=== PATIENT | female | born 1955 | race Caucasian/White ===

== ENCOUNTER → 2018-08-29 | Outpatient (CLI) | payer BC ==
[~2018-08-29] MED LIST: IOHEXOL 350 MG/ML 100 ML (OMNIPAQUE 350) VIAL IV ONE; NS 100 ML (IVPB) BAG IV ONE; RECEIVED CONTRAST (Hold Metformin) IV SCH
[2018-08-29 09:07] LABS: BUN/CREATININE RATIO 24; CALCIUM 10.3 MG/DL (8.5-10.1); CARBON DIOXIDE 26 MMOL/L (21-32); CHLORIDE 102 MMOL/L (98-107); CREATININE SERUM 0.84 MG/DL (0.60-1.30); GFR ESTIMATED > 60; GLUCOSE 139 MG/DL (70-105); POTASSIUM 4.6 MMOL/L (3.6-5.0); SODIUM 138 MMOL/L (135-145)
--- NOTE | 2018-08-29 11:10 | Diagnostic Imaging Report ---
EXAMINATION: CTA of the renals. INDICATION: Syncope. TECHNIQUE: Contiguous axial sections were taken through the abdomen to include the aorta and renal arteries in the axial plane. Sagittal and coronal reconstructed images were also performed. MIP images were obtained as well. COMPARISON: There are no previous studies available for comparison. FINDINGS: The aorta is not aneurysmally dilated and there is no atherosclerotic plaque involving the aorta. There are two renal arteries to the left kidney and a single renal artery to the right kidney. There is no hemodynamically significant stenosis of the renal arteries. There is no evidence for hemodynamically significant stenosis of the celiac axis or the superior mesenteric artery or the inferior mesenteric artery. There is no evidence for hemodynamically significant stenosis of the common iliacs either. The abdomen where visualized is unremarkable. The liver does not appear to be enlarged and there is no focal mass involving the liver. The spleen, pancreas, adrenals, gallbladder, kidneys, inferior vena cava, and stomach are unremarkable for an acute abnormality. There may be a small hiatal hernia. The lung bases are clear. The bone windows are unremarkable for fracture or for destructive lesion. The breasts were not visualized in their entirety. There is no obvious breast mass evident. According to our records, the patient has not had a mammogram. If the patient has had a recent (one year) mammogram elsewhere, then no further imaging would be necessary. However if the patient has not had a recent mammogram, then mammography should be obtained. IMPRESSION: 1. The aorta is not aneurysmally dilated and there is no atherosclerotic disease of the aorta. 2. There is no hemodynamically significant stenosis of the origins of the vessels arising from the aorta. In particular, there is no sign of renal artery stenosis. 3. There is no acute abnormality of the abdomen or pelvis. 4. There is no obvious breast mass. Recommendations, as above. Dictated by: Dictated on workstation # [id number]
== END ==
LOC: RAD 08:32
PROVIDERS: ATTEND Family Medicine
DX: R55 Syncope and collapse (principal)
CPT/HCPCS: 36415; 74175; 80048